=== PATIENT | female | born 1995 | race Caucasian/White ===

== ENCOUNTER 2016-11-21 12:16 | Emergency (ER) | payer BC ==
[2016-11-21 13:05] VITALS: BP 125/65
--- NOTE | 2016-11-21 13:14 | UC ---
Throat Pain/Nasal Alfredo HPI - HPI Summary HPI Summary: here with mother complaint of nasal congestion and cough intermittently for the last 2 months for the last week cough has increased sinus tenderness frequent headaches productive cough with large amounts of mucous has felt some wheezing in her chest at times sometimes has uncontrolled coughing sleeping more than normal taking airborne and multivitamin without relief hasn't used an inhaler because she lost it denies fever and chills - History of Current Complaint Chief Complaint: UCRespiratory Stated Complaint: COUGH CONGESTION Time Seen by Provider: 11/21/16 13:09 Hx Obtained From: Patient, Family/Filemaker Developer Hx Last Menstrual Period: 10/31/16 - Allergies/Home Medications Allergies/Adverse Reactions: Allergies Allergy/AdvReac Type Severity Reaction Status Date / Time No Known Allergies Allergy Unverified 11/21/16 12:59 Home Medications: Home Medications Multiple Vitamin [Multivitamins] 1 cap PO DAILY 11/21/16 [History Confirmed 06/30] PMH/Surg Hx/FS Hx/Imm Hx Previously Healthy: Yes Cardiovascular History Of: Denies: Hypertension, Pacemaker/ICD, Congestive Heart Failure, Atrial Fibrillation Respiratory History Of: Reports: Asthma Denies: COPD, Bronchitis GI/ History Of: Denies: Gastroesophageal Reflux - Surgical History Surgical History: None - Family History Known Family History: Negative: Cardiac Disease, Hypertension, Diabetes - Social History Occupation: Student Lives: With Family Alcohol Use: Occasionally Substance Use Type: None Smoking Status (MU): Never Smoked Tobacco - Immunization History Most Recent Influenza Vaccination: none Vaccination Up to Date: Yes Review of Systems Constitutional: Negative Skin: Negative Eyes: Negative ENT: Ear Ache, Nasal Discharge Respiratory: Cough Cardiovascular: Negative Gastrointestinal: Negative Genitourinary: Negative Motor: Negative Neurovascular: Negative Musculoskeletal: Negative Neurological: Negative Psychological: Negative All Other Systems Reviewed And Are Negative: Yes Physical Exam Triage Information Reviewed: Yes Appearance: No Pain Distress, Well-Nourished, Ill-Appearing Vital Signs: Initial Vital Signs Temp 98.2 F 11/21/16 13:00 Pulse 75 11/21/16 13:00 Resp 16 11/21/16 13:00 BP 125/65 11/21/16 13:00 Pulse Ox 99 11/21/16 13:00 Vital Signs Reviewed: Yes Eyes: Positive: Conjunctiva Clear ENT: Positive: Pharyngeal erythema, Nasal congestion, Nasal drainage, TM bulging , Other: - frontal sinus tenderness. Negative: TM red Neck: Positive: No Lymphadenopathy Respiratory: Positive: Lungs clear, Normal breath sounds, No respiratory distress, No accessory muscle use Cardiovascular: Positive: RRR, No Murmur, Pulses Normal Abdomen Description: Positive: Nontender, Soft Bowel Sounds: Positive: Present Musculoskeletal Exam: Normal Neurological: Positive: Alert Psychological Exam: Normal Skin Exam: Normal Throat Pain/Nasal Course/Dx - Course Course Of Treatment: exam completed. will treat for sinusitis,asthma exacerbation - Differential Dx/Diagnosis Differential Diagnosis/HQI/PQRI: Sinusitis, Other - bronchitis Provider Diagnoses: asthma exacerbation, sinusitis Discharge - Discharge Plan Condition: Stable Disposition: HOME Prescriptions: Albuterol HFA INHALER* [Ventolin HFA Inhaler*] 2 puff INH Q4H PRN #1 mdi PRN Reason: Cough Amoxicillin/Clavulanate TAB* [Augmentin TAB 875*] 875 mg PO BID #20 tab Spacer/Aerosol-Holding Chamber [Aerochamber Mv] 1 mis XX Q4HR #1 mis predniSONE TAB* [Deltasone TAB*] 50 mg PO DAILY #5 tab Patient Education Materials: Sinusitis (ED), Bronchospasm (ED), Asthma (ED) Forms: *Physical Education Release Referrals: Hugo Reza MD [Primary Care Provider] - Additional Instructions: Please take antibiotic and prednisone as directed Use your albuterol inhaler every 4-6 hours when needed for wheezing, shortness of breath or uncontrolled coughing. flush sinuses with normal saline 1x day Increase fluids and rest Take acetaminophen or ibuprofen for fever or pain Please review your discharge instructions. If your symptoms do not improve please call your primary care provider or return to urgent care.
== END 2016-11-21 13:30 | disposition home or self-care (01) ==
LOC: UCEAST 12:16
DX: J32.9 Chronic sinusitis, unspecified (principal); J45.901 Unspecified asthma with (acute) exacerbation
CPT/HCPCS: 99212; G0463

== ENCOUNTER 2017-04-03 20:38 | Emergency (ER) | payer BC ==
[2017-04-03 20:43] VITALS: BP 155/90
[2017-04-03] MEDS ORDERED: Ibuprofen TAB* 600 MG PO ONE (20:51)
[2017-04-03] MEDS ORDERED: Ciprofloxacin 0.3% OPTH.SOL* 2.5 ML BTL LEFT EYE SCH (22:00)
--- NOTE | 2017-04-03 23:29 | ED ---
Throat Pain/Nasal Congestion - HPI Summary HPI Summary: Patient presents with left eye pain that began 5 days ago when she thinks she scratched the eye when she took her contact out. She only had mild irritation and redness in the eye but was able to continue wearing her contacts. She graduated from college today, but the eye became more painful so she switched to glasses and her mother made her come to the ED for evaluation. She denies vision changes, CORBETT, itch, or drainage. She has a foreign body sensation that has not improved with drops. - History of Current Complaint Chief Complaint: EDEyeProblem Time Seen by Provider: 04/03/17 20:47 Hx Obtained From: Patient, Family/Block Greaser Onset/Duration: Gradual Onset Severity: Moderate Associated Signs And Symptoms: Positive: FB Sensation Cough: None - Allergies/Home Medications Allergies/Adverse Reactions: Allergies Allergy/AdvReac Type Severity Reaction Status Date / Time No Known Allergies Allergy Unverified 11/21/16 12:59 PMH/Surg Hx/FS Hx/Imm Hx Cardiovascular History: Denies: Hx Congestive Heart Failure, Hx Hypertension, Hx Pacemaker/ICD, Other Cardiovascular Problems/Disorders Respiratory History: Reports: Hx Asthma Denies: Hx Chronic Obstructive Pulmonary Disease (COPD), Other Respiratory Problems/Disorders Musculoskeletal History: Denies: Hx Rheumatoid Arthritis, Hx Osteoporosis Opthamlomology History: Reports: Hx Contacts or Glasses Infectious Disease History: No Infectious Disease History: Denies: Traveled Outside the [place] in Last 30 Days - Family History Known Family History: Positive: None Negative: Cardiac Disease, Hypertension, Diabetes - Social History Occupation: Student Lives: With Family Alcohol Use: Occasionally Substance Use Type: Reports: None Hx Tobacco Use: No Smoking Status (MU): Never Smoked Tobacco Review of Systems Negative: Fever Positive: Erythema - left. Negative: Photophobia, Blurred Vision, Diplopia Negative: Headache All Other Systems Reviewed And Are Negative: Yes Physical Exam Triage Information Reviewed: Yes Vital Signs On Initial Exam: Initial Vitals Temp Pulse Resp BP Pulse Ox 98.2 F 76 17 155/90 99 04/03/17 20:41 04/03/17 20:41 04/03/17 20:41 04/03/17 20:41 04/03/17 20:41 Vital Signs Reviewed: Yes Appearance: Positive: Well-Appearing, Well-Nourished, Pain Distress Skin: Positive: Warm, Skin Color Reflects Adequate Perfusion, Dry, Soft Head/Face: Positive: Normal Head/Face Inspection Eyes: Positive: EOMI, JOSELYN, Conjunctiva Inflammed ENT: Positive: Hearing grossly normal Respiratory/Lung Sounds: Positive: Breath Sounds Present Cardiovascular: Positive: RRR Musculoskeletal: Negative: Edema Left, Edema Right Neurological: Positive: Sensory/Motor Intact, Alert, Oriented to Person Place, Time, NV Bundle Intact Distally, Normal Gait Psychiatric: Positive: Affect/Mood Appropriate AVPU Assessment: Alert Procedures - Eye Procedure Alcaine Drops Administered: Yes Eye Irrigated w/ Saline (ccs): 10 Antibiotic Ointment/Drps Admin: left eye Diagnostics - Vital Signs Vital Signs Temp Pulse Resp BP Pulse Ox 04/03/17 20:41 98.2 F 76 17 155/90 99 - Laboratory Lab Statement: Any lab studies that have been ordered have been reviewed, and results considered in the medical decision making process. EENT Course/Dx - Differential Diagnoses Differential Diagnoses: Abrasion, Detached Retina, Keratitis, Periorbital/ Orbital Cellulitis, Retinal Artery Occlusion, Uveitis - Diagnoses Provider Diagnoses: Corneal abrasion Discharge - Discharge Plan Condition: Stable Disposition: HOME Patient Education Materials: Corneal Abrasion (ED) Referrals: No Primary Care Phys,NOPCP [Primary Care Provider] - Aureliano Sebastian MD [Medical Doctor] - Additional Instructions: Please call Dr. Sebastian's office in the morning for an appointment for evaluation in the next 24-48 hours. Use the antibiotic ointment, which will act as a lubricant as well, as prescribed. Take ibuprofen 400-600mg three times daily with meals for the next 2-3 days to reduce swelling and pain otherwise. Return to the emergency department if symptoms worsen.
== END 2017-04-03 22:15 | disposition home or self-care (01) ==
LOC: ED 20:38
DX: S05.02XA Injury of conjunctiva and corneal abrasion without foreign body, left eye, initial encounter (principal); J45.909 Unspecified asthma, uncomplicated; X58.XXXA Exposure to other specified factors, initial encounter; Y92.9 Unspecified place or not applicable
CPT/HCPCS: 99282; A9270-GY